=== PATIENT | female | born 1970 | race Caucasian/White ===

== ENCOUNTER → 2016-10-15 | Outpatient (CLI) | payer BC ==
--- NOTE | 2016-10-15 11:21 | MM ---
Reason for exam: clinical finding. Last mammogram was performed 1 year and 1 month ago. History: Patient had first child at age 37. Family history of breast cancer in maternal grandmother at age 60. Took hormonal contraceptives for 15 years beginning at age 18. Indicated problem(s): lump or thickening in both breasts. Physical Findings: Nurse Summary: 1cm nodule in the right breast at 1 o'clock (nurse mm) MG Diagnostic Mammo w CAD NAVID Bilateral CC and MLO view(s) were taken. Prior study comparison: September 12, 2015, bilateral MG screening mammo w CAD. January 13, 2014, bilateral MG screening mammo w CAD. The breast tissue is extremely dense which could obscure a lesion on mammography. Finding: There are typically stable benign calcifications in both breasts. There is a chronic nodularity bilaterally. No significant changes in finding since September 12, 2015 and January 13, 2014. These results were verbally communicated with the patient and result sheet given to the patient on 10/15/16. ASSESSMENT: Benign, BI-RAD 2 RECOMMENDATION: Routine screening mammogram of both breasts in 1 year.
--- NOTE | 2016-10-15 11:30 | USB ---
Reason for exam: clinical finding. History: Patient had first child at age 37. Family history of breast cancer in maternal grandmother at age 60. Took hormonal contraceptives for 15 years beginning at age 18. Indicated problem(s): lump or thickening in both breasts. Physical Findings: Nurse did not find any significant physical abnormalities on exam. US Breast BILAT Left breast ultrasound includes all four quadrants, the retroareolar region and axilla. Finding demonstrate several oval cystic lesions measuring 1.7 x 1.2 x 1.6cm at 12 o'clock, 1.5 x 1.2 x 1.3cm at 1 o'clock, 1.3 x 0.9 x 1.1cm at 6 o'clock, and 1.5 x 0.9 x 1.3 cm at 10 o'clock. Right breast ultrasound includes all four quadrants, the retroareolar region and axilla. Finding demonstrate several oval cystic lesions measuring 0.8 x 0.7 x 0.9cm at 1 o'clock, 0.9 x 0.8 x 0.9cm at 3 o'clock, 0.8 x 0.9 x 0.8cm at 8 o'clock, and 1.0 x 1.0 x 1.0cm at 10 o'clock. Multiple cyst throughout. These results were verbally communicated with the patient and result sheet given to the patient on 10/15/16. ASSESSMENT: Benign, BI-RAD 2 RECOMMENDATION: Routine screening mammogram of both breasts in 1 year. Manage patient on a clinical basis.
== END | disposition home or self-care (01) ==
LOC: RADMAMWWP 08:20
PROVIDERS: ATTEND Obstetrics & Gynecology
DX: N63 Unspecified lump in breast (principal); N60.09 Solitary cyst of unspecified breast; Z80.3 Family history of malignant neoplasm of breast
CPT/HCPCS: 76641; G0204

== ENCOUNTER 2017-08-27 10:04 | Inpatient (IN) | payer BC ==
[2017-08-27] MEDS ORDERED: PANTOPRAZOLE 40 MG/10 ML VIAL IVP STA (10:27)
[2017-08-27] MEDS ORDERED: RX INFO: IV CONTRAST WAS GIVEN 1 EACH MISC MISCELLANE PRN (10:27)
[2017-08-27] MEDS ORDERED: SODIUM CHLORIDE 0.9% 1,000 ML IV STA ×2 (10:27)
[2017-08-27] MEDS ORDERED: MORPHINE SULFATE 4MG/4ML SYRG IV STA (10:27)
[2017-08-27] MEDS ORDERED: ONDANSETRON 4 MG/2 ML VIAL IVP STA (10:27)
--- NOTE | 2017-08-27 10:46 | ED ---
Abdominal Pain HPI - General Chief Complaint: Abdominal Pain Stated Complaint: Abd Pain Time Seen by Provider: 08/27/17 10:18 Source: patient Mode of arrival: ambulatory Limitations: no limitations - History of Present Illness Initial Comments: 47 years old female presents with abdominal pain, pain started in epigastric area this morning around 5 AM, the pain has spread down to the left side of the abdomen were spinning amylase in the left lower quadrant or left paraumbilical area she is nauseous no vomiting though she does have a history of GERD she takes Nexium she denies any use of nonsteroidal anti-inflammatory she denies any use of peptic ulcer disease. She does have a history of endometriosis she been very or today that endometriosis been in remission for the last several yea for last several years and she has no history of abdominal surgeries she still has her appendix she still has her gallbladder and no history of diverticulitis, review of system is unremarkable unremarkable otherwise - Related Data Home Medications Medication Instructions Recorded Confirmed Pantoprazole Sodium [Protonix] 40 mg PO DAILY 08/27/17 08/27/17 Sertraline [Zoloft] 50 mg PO DAILY 08/27/17 08/27/17 levETIRAcetam [Keppra] 750 mg PO BID 08/27/17 08/27/17 Allergies Allergy/AdvReac Type Severity Reaction Status Date / Time latex Allergy Rash/Hives Verified 08/27/17 10:22 Sulfa (Sulfonamide Allergy Rash/Hives Verified 08/27/17 10:22 Antibiotics) Review of Systems ROS Statement: Those systems with pertinent positive or pertinent negative responses have been documented in the HPI. ROS Other: All systems not noted in ROS Statement are negative. Past Medical History Past Medical History: GERD/Reflux, Seizure Disorder Additional Past Medical History / Comment(s): anxiety celiac History of Any Multi-Drug Resistant Organisms: None Reported Past Surgical History: Adenoidectomy, Tonsillectomy Additional Past Surgical History / Comment(s): lap for endometriosis Past Psychological History: Anxiety Smoking Status: Former smoker Past Alcohol Use History: Occasional Past Drug Use History: None Reported General Exam - General Exam Comments Initial Comments: General: The patient is awake, in mild distress Skin: Skin is warm and dry and no rashes or lesions are noted. Eye: Pupils are equal, round and reactive to light, extra-ocular movements are intact; there is normal conjunctiva bilaterally. Ears, nose, mouth and throat: There are moist mucous membranes and no oral lesions. Neck: The neck is supple, there is no tenderness or JVD. Cardiovascular: There is a regular rate and rhythm. No murmur, rub or gallop is appreciated. Respiratory: To auscultation bilateral, no wheezing no rhonchi no distress respiratory arriola noticed Gastrointestinal: Mildly tender in epigastric area and also tender over the left lower quadrant area bowel sounds are positive no guarding no rebounds Back: There is no tenderness to palpation in the midline. There is no obvious deformity. Musculoskeletal: Normal ROM, no tenderness, There is no pedal edema. There is no calf tenderness or swelling. No cords were appreciated. Neurological: CN II-XII intact, Cranial nerves III through XII are intact. There are no obvious motor or sensory deficits. Coordination appears grossly intact. Speech is normal. Psychiatric: Cooperative, appropriate mood & affect, normal judgment. Limitations: no limitations Course Vital Signs 08/27/17 10:12 Temperature 97.7 F Pulse Rate 111 H Respiratory 18 Rate Blood Pressure 169/79 O2 Sat by Pulse 98 Oximetry Patient is reassessed by the time of arrest assessments noticed that the white count slightly elevated compress metabolic panel is negative urine is unremarkable CT of the abdomen showed mesenteric adenitis and NOTICED LEFT RENAL ANGIOMYOLIPOMA WHICH IS 4.7 CM CONSIDERING IS 4.7 CM AND PATIENT'S PAIN I RECOMMENDED THAT SHE STAY OBSERVATION TODAY HE SEES A UROLOGIST AND GET SOME IV PAIN MEDICATION ALONG WITH SOME ANTIBIOTICS Medical Decision Making - Lab Data Result diagrams: 08/27/17 11:00 08/27/17 11:00 Lab Results 08/27/17 08/27/17 08/27/17 Range/Units 11:00 11:00 11:00 WBC 13.0 H (3.8-10.6) k/uL RBC 4.98 (3.80-5.40) m/uL Hgb 14.2 (11.4-16.0) gm/dL Hct 43.4 (34.0-46.0) % MCV 87.0 (80.0-100.0) fL MCH 28.6 (25.0-35.0) pg MCHC 32.8 (31.0-37.0) g/dL RDW 13.0 (11.5-15.5) % Plt Count 265 (150-450) k/uL Neutrophils % 84 % Lymphocytes % 11 % Monocytes % 3 % Eosinophils % 2 % Basophils % 0 % Neutrophils # 10.9 H (1.3-7.7) k/uL Lymphocytes # 1.4 (1.0-4.8) k/uL Monocytes # 0.4 (0-1.0) k/uL Eosinophils # 0.2 (0-0.7) k/uL Basophils # 0.0 (0-0.2) k/uL Sodium 141 (137-145) mmol/L Potassium 4.2 (3.5-5.1) mmol/L Chloride 101 (98-107) mmol/L Carbon Dioxide 26 (22-30) mmol/L Anion Gap 14 mmol/L BUN 11 (7-17) mg/dL Creatinine 0.66 (0.52-1.04) mg/dL Est GFR (CKD-EPI)AfAm >90 (>60 ml/min/1.73 sqM) Est GFR (CKD-EPI)NonAf >90 (>60 ml/min/1.73 sqM) Glucose 105 H (74-99) mg/dL Calcium 9.3 (8.4-10.2) mg/dL Total Bilirubin 0.6 (0.2-1.3) mg/dL AST 29 (14-36) U/L ALT 46 (9-52) U/L Alkaline Phosphatase 91 (38-126) U/L C-Reactive Protein 18.7 H (<10.0) mg/L Total Protein 7.2 (6.3-8.2) g/dL Albumin 4.5 (3.5-5.0) g/dL Amylase 47 (30-110) U/L Lipase 49 (23-300) U/L Urine Color Urine Appearance (Clear) Urine pH (5.0-8.0) Ur Specific [place] (1.001-1.035) Urine Protein (Negative) Urine Glucose (UA) (Negative) Urine Ketones (Negative) Urine Blood (Negative) Urine Nitrite (Negative) Urine Bilirubin (Negative) Urine Urobilinogen (<2.0) mg/dL Ur Leukocyte Esterase (Negative) Urine HCG, Qual Not Detected (Not Detectd) 08/27/17 Range/Units 11:00 WBC (3.8-10.6) k/uL RBC (3.80-5.40) m/uL Hgb (11.4-16.0) gm/dL Hct (34.0-46.0) % MCV (80.0-100.0) fL MCH (25.0-35.0) pg MCHC (31.0-37.0) g/dL RDW (11.5-15.5) % Plt Count (150-450) k/uL Neutrophils % % Lymphocytes % % Monocytes % % Eosinophils % % Basophils % % Neutrophils # (1.3-7.7) k/uL Lymphocytes # (1.0-4.8) k/uL Monocytes # (0-1.0) k/uL Eosinophils # (0-0.7) k/uL Basophils # (0-0.2) k/uL Sodium (137-145) mmol/L Potassium (3.5-5.1) mmol/L Chloride (98-107) mmol/L Carbon Dioxide (22-30) mmol/L Anion Gap mmol/L BUN (7-17) mg/dL Creatinine (0.52-1.04) mg/dL Est GFR (CKD-EPI)AfAm (>60 ml/min/1.73 sqM) Est GFR (CKD-EPI)NonAf (>60 ml/min/1.73 sqM) Glucose (74-99) mg/dL Calcium (8.4-10.2) mg/dL Total Bilirubin (0.2-1.3) mg/dL AST (14-36) U/L ALT (9-52) U/L Alkaline Phosphatase (38-126) U/L C-Reactive Protein (<10.0) mg/L Total Protein (6.3-8.2) g/dL Albumin (3.5-5.0) g/dL Amylase (30-110) U/L Lipase (23-300) U/L Urine Color Light Yellow Urine Appearance Clear (Clear) Urine pH 7.0 (5.0-8.0) Ur Specific [place] 1.024 (1.001-1.035) Urine Protein 1+ H (Negative) Urine Glucose (UA) Negative (Negative) Urine Ketones Negative (Negative) Urine Blood Negative (Negative) Urine Nitrite Negative (Negative) Urine Bilirubin Negative (Negative) Urine Urobilinogen <2.0 (<2.0) mg/dL Ur Leukocyte Esterase Negative (Negative) Urine HCG, Qual (Not Detectd) Disposition Clinical Impression: Mesenteric adenitis, Renal angiomyolipoma Disposition: ADMITTED IP TO THIS [facility] Condition: Good Referrals: Axel Saldivar DO [Primary Care Provider] - 1-2 days
[2017-08-27 11:21] LABS: Appearance,Urine Clear (Clear); Bilirubin,Urine Negative (Negative); Blood,Urine Negative (Negative); Color,Urine Light Yellow; Glucose,Urine (UA) Negative (Negative); Ketones,Urine Negative (Negative); Leukocyte Esterase,Urine Negative (Negative); Nitrite,Urine Negative (Negative); Urobilinogen,Urine <2.0 mg/dL (<2.0)
[2017-08-27 11:23] LABS: Basophils % (A) 0 %; Eosinophils # (A) 0.2 k/uL (0-0.7); Eosinophils % (A) 2 %; HCT 43.4 % (34.0-46.0); HGB 14.2 gm/dL (11.4-16.0); Lymphocytes # (A) 1.4 k/uL (1.0-4.8); Lymphocytes % (A) 11 %; MCH 28.6 pg (25.0-35.0); MCHC 32.8 g/dL (31.0-37.0); Mean Platelet Volume 6.8; Monocytes # (A) 0.4 k/uL (0-1.0); Monocytes % (A) 3 %; Neutrophils # (A) 10.9 k/uL (1.3-7.7); Neutrophils % (A) 84 %; Platelet Count 265 k/uL (150-450); RBC 4.98 m/uL (3.80-5.40)
[2017-08-27 11:30] LABS: Protein,Urine 1+ (Negative); Specific Gravity,Urine 1.024 (1.001-1.035)
[2017-08-27 11:35] LABS: ALT 46 U/L (9-52); AST 29 U/L (14-36); Albumin 4.5 g/dL (3.5-5.0); Alkaline Phosphatase 91 U/L (38-126); Amylase 47 U/L (30-110); Anion Gap 14 mmol/L; Blood Urea Nitrogen 11 mg/dL (7-17); Calcium 9.3 mg/dL (8.4-10.2); Carbon Dioxide 26 mmol/L (22-30); Chloride 101 mmol/L (98-107); Glucose 105 mg/dL (74-99); Lipase 49 U/L (23-300); Potassium 4.2 mmol/L (3.5-5.1); Sodium 141 mmol/L (137-145); Total Bilirubin 0.6 mg/dL (0.2-1.3); Total Protein 7.2 g/dL (6.3-8.2)
[2017-08-27 11:50] LABS: C Reactive Protein 18.7 mg/L (<10.0)
--- NOTE | 2017-08-27 12:17 | CT ---
EXAMINATION TYPE: CT abdomen pelvis w con DATE OF EXAM: 08/27/2017 COMPARISON: NONE HISTORY: 47-year-old female with generalized abdominal pain TECHNIQUE: Contiguous axial scanning of the abdomen and pelvis following administration of 100 ml Omn ipaque 300 IV contrast. Delayed images through the kidneys and coronal/sagittal reconstructions perf ormed. CT DLP: 1394 mGycm Automated exposure control for dose reduction was used. FINDINGS: Heart is normal size without pericardial effusion. Lung bases clear without pleural effusion. Small hiatal hernia. Liver borderline enlarged measuring 17.3 cm craniocaudal. There is low attenuation of the hepatic par enchyma as compared to the spleen on portal venous phase. No focal liver lesion or biliary ductal dil atation. Portal venous system is patent. Gallbladder, adrenal glands, right kidney, spleen, and pancreas appear within normal limits. Numerous nonenlarged and couple borderline sized left mid abdominal mesenteric lymph nodes are presen t measuring up to 8 mm, coronal image 31. No dilated small bowel, free fluid, or free air. Tiny fatty umbilical hernia. The appendix is not clearly identified. No dilated tubular fluid-filled structure identified in the r ight lower quadrant to suggest acute appendicitis. Mild stool in the right hemicolon. Couple divertic jojo in the sigmoid colon. No pericolonic inflammatory change. There is a fatty tumor partially exophytic from the lateral mid pole left kidney most suggestive of a n AML measuring 4.6 cm. Bladder under distended. Uterus suggests underlying arcuate configuration and a 1.6 cm dominant folli eliana or functional cyst in the left ovary. Small hypodense area in the right uterine cornua is nonspec ific, coronal image 39 and axial image 68. Right ovary is visualized. No abnormal fluid collection in the pelvis or pelvic lymphadenopathy seen. Bones: No osseous destructive process. IMPRESSION: 1. 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 NOTE THAT SIZE GREATER THAN 4 CM INCURS AN INCREASED RISK FOR SP ONTANEOUS HEMORRHAGE IN THESE LESIONS. CONSIDER OUTPATIENT UROLOGIC REFERRAL FOR FUTURE MANAGEMENT/OB SERVATION. 2. BORDERLINE HEPATOMEGALY (17.3 CM) WITH HEPATIC STEATOSIS. 3. NUMEROUS SCATTERED NONENLARGED AND BORDERLINE ENLARGED MESENTERIC LYMPH NODES COULD REFLECT A MESE NTERIC ADENITIS. 4. SMALL HYPODENSE AREA IN THE REGION OF THE RIGHT UTERINE CORNUA IS NONSPECIFIC AND COULD REPRESENT SOME ENDOMETRIAL BREAKDOWN RELATING IMPENDING MENSTRUATION. IF PELVIC SYMPTOMS, PELVIC ULTRASOUND CAN BE CONSIDERED. 5. SMALL HIATAL HERNIA.
[2017-08-27] MEDS ORDERED: ACETAMINOPHEN TAB 325 MG TAB PO PRN (12:48)
[2017-08-27] MEDS ORDERED: KETOROLAC 30 MG/ML 1 ML VIAL IVP PRN (12:48)
[2017-08-27] MEDS ORDERED: MORPHINE SULF 5MG/10ML VL IV PRN ×2 (12:48→13:58)
[2017-08-27] MEDS ORDERED: NALOXONE 0.4 MG/ML 1 ML VIAL IV PRN (12:48)
[2017-08-27] MEDS ORDERED: ONDANSETRON 4 MG/2 ML VIAL IVP PRN (12:48)
[2017-08-27] MEDS ORDERED: cefTRIAXone IN SWFI 1,000 MG/10 ML SYRINGE IVP STA (12:55)
--- NOTE | 2017-08-27 14:13 | P.HPIM ---
History of Present Illness 47 years old female presents with abdominal pain, started today in the left flank, sudden in onset, sharp in nature 10/10 in severity, radiating to the left groin area. Patient. Patient had a CAT scan of the abdomen which showed angiomyolipoma with possible hemorrhage in the left kidney. Because of severe pain and uncontrolled pain. Patient is admitted. Patient is still having 7/10 pain improved with Toradol and morphine. Patient is on IV fluids and Toradol. Patient the had history of endometriosis in the past. Patient denied any dysuria, increased urinary frequency. Denied any cough, denied any fever, chills Review of Systems REVIEW OF SYSTEMS: CONSTITUTIONAL: No fever, no malaise, no fatigue. HEENT: No recent visual problems or hearing problems. Denied any sore throat. CARDIOVASCULAR: No chest pain, orthopnea, PND, no palpitations, no syncope. PULMONARY: No shortness of breath, no cough, no hemoptysis. GASTROINTESTINAL: Mentioned in HPI NEUROLOGICAL: No headaches, no weakness, no numbness. HEMATOLOGICAL: Denies any bleeding or petechiae. GENITOURINARY: Denies any burning micturition, frequency, or urgency. MUSCULOSKELETAL/RHEUMATOLOGICAL: Denies any joint pain, swelling, or any muscle pain. ENDOCRINE: Denies any polyuria or polydipsia. The rest of the 14-point review of systems is negative. Past Medical History Past Medical History: GERD/Reflux, Seizure Disorder Additional Past Medical History / Comment(s): anxiety celiac History of Any Multi-Drug Resistant Organisms: None Reported Past Surgical History: Adenoidectomy, Tonsillectomy Additional Past Surgical History / Comment(s): lap for endometriosis Past Psychological History: Anxiety Smoking Status: Former smoker Past Alcohol Use History: Occasional Past Drug Use History: None Reported Medications and Allergies Home Medications Medication Instructions Recorded Confirmed Type Pantoprazole Sodium [Protonix] 40 mg PO DAILY 08/27/17 08/27/17 History Sertraline [Zoloft] 50 mg PO DAILY 08/27/17 08/27/17 History levETIRAcetam [Keppra] 750 mg PO BID 08/27/17 08/27/17 History Allergies Allergy/AdvReac Type Severity Reaction Status Date / Time latex Allergy Rash/Hives Verified 08/27/17 10:22 Sulfa (Sulfonamide Allergy Rash/Hives Verified 08/27/17 10:22 Antibiotics) Physical Exam Vitals: Vital Signs Temp Pulse Resp BP Pulse Ox 08/27/17 13:00 96 16 127/63 98 08/27/17 10:12 97.7 F 111 H 18 169/79 98 Intake and Output 08/26/17 08/27/17 08/27/17 22:59 06:59 14:59 Other: Weight 85.275 kg PHYSICAL EXAMINATION: GENERAL: The patient is alert and oriented x3, not in any acute distress. Well developed, well nourished. HEENT: Pupils are round and equally reacting to light. EOMI. No scleral icterus. No conjunctival pallor. Normocephalic, atraumatic. No pharyngeal erythema. No thyromegaly. CARDIOVASCULAR: S1 and S2 present. No murmurs, rubs, or gallops. PULMONARY: Chest is clear to auscultation, no wheezing or crackles. ABDOMEN: Softtenderness in left flank and abdomen nondistended, normoactive bowel sounds. No palpable organomegaly. MUSCULOSKELETAL: No joint swelling or deformity. EXTREMITIES: No cyanosis, clubbing, or pedal edema. NEUROLOGICAL: Gross neurological examination did not reveal any focal deficits. SKIN: No rashes. Results CBC & Chem 7: 08/27/17 11:00 08/27/17 11:00 Labs: Abnormal Lab Results - Last 24 Hours (Table) 08/27/17 08/27/17 08/27/17 Range/Units 11:00 11:00 11:00 WBC 13.0 H (3.8-10.6) k/uL Neutrophils # 10.9 H (1.3-7.7) k/uL Glucose 105 H (74-99) mg/dL C-Reactive Protein 18.7 H (<10.0) mg/L Urine Protein 1+ H (Negative) Assessment and Plan Plan: -Left flank pain, left abdominal pain: Secondary to possible hemorrhage into angiomyoma lipoma of the left kidney. Urology was consulted and patient will be on when necessary medications for nausea, unclear light and morphine for pain. And Plavix will risk and urine. -leukocytosis reactive in nature. No need for antibiotic at this time Gastroesophageal reflux disease. -Seizure disorder. For above-mentioned chronic medical problems patient resumed on home medications.
[2017-08-27 14:27] VITALS: BMI 34.4
[2017-08-27 16:02] VITALS: RESP 18
[2017-08-27] MEDS ORDERED: MORPHINE SULFATE 4MG/4ML SYRG IV PRN (16:30)
--- NOTE | 2017-08-27 16:53 | P.GSCN ---
History of Present Illness Consult date: 08/27/17 Reason for Consult: Left renal mass History of present illness: The patient is a 47-year-old female who developed the abrupt onset of pain in the epigastric abdomen this morning. The pain was described as a 10 out of 10 initially. The location of the pain has changed and is now predominantly in the left upper quadrant and left lower quadrant. It was associated with some nausea but no vomiting. The patient says she has a history of celiac disease but has had no recent change in her bowel pattern. She says she feels like if she could pass gas her pain would be relieved. She has had no gross hematuria but says that she was noted to have a trace of blood in her urine when she was seen in an outpatient clinic earlier this morning. She was evaluated in the emergency room earlier today and a computed tomography scan of the abdomen and pelvis with IV contrast showed a 4.5 cm fat-containing mass arising from the superior-the lateral portion of the left kidney consistent with an angiomyolipoma. There did not appear to be any acute bleeding associated with this. I was asked to see the patient for further evaluation. The patient has no previous imaging of her kidneys for comparison. There is no family history of renal disease or angiomyolipoma. The patient has a history of seizures but has not had one in several years since she has been maintained on Keppra. She has no previous history of gross hematuria or urolithiasis. She does have a history of endometriosis. Review of Systems - Constitutional Denies chronic pain, Denies fever - Cardiovascular Denies shortness of breath - Respiratory Reports pain on inspiration - Gastrointestinal Reports as per HPI - Genitourinary Genitourinary: Reports as per HPI Past Medical History Past Medical History: GERD/Reflux, Seizure Disorder Additional Past Medical History / Comment(s): anxiety celiac endometriosis History of Any Multi-Drug Resistant Organisms: None Reported Past Surgical History: Adenoidectomy, Tonsillectomy Additional Past Surgical History / Comment(s): lap for endometriosis Past Anesthesia/Blood Transfusion Reactions: No Reported Reaction Past Psychological History: Anxiety Smoking Status: Former smoker Past Alcohol Use History: Occasional Past Drug Use History: None Reported - Past Family History Mother Family Medical History: Diabetes Mellitus, Hypertension Medications and Allergies Home Medications Medication Instructions Recorded Confirmed Type Pantoprazole Sodium [Protonix] 40 mg PO DAILY 08/27/17 08/27/17 History Sertraline [Zoloft] 50 mg PO DAILY 08/27/17 08/27/17 History levETIRAcetam [Keppra] 750 mg PO BID 08/27/17 08/27/17 History Allergies Allergy/AdvReac Type Severity Reaction Status Date / Time latex Allergy Rash/Hives Verified 08/27/17 10:22 Sulfa (Sulfonamide Allergy Rash/Hives Verified 08/27/17 10:22 Antibiotics) Surgical - Exam Vital Signs Temp Pulse Resp BP Pulse Ox 97.7 F 111 H 18 169/79 98 08/27/17 10:12 08/27/17 10:12 08/27/17 10:12 08/27/17 10:12 08/27/17 10:12 - General well developed, moderate pain, obese - Neck no masses, no lymphadectomy - Respiratory normal respiratory effort - Abdomen Abdomen: soft, tender (Left upper quadrant and left lower quadrant. No left flank pain to palpation), no organomegaly, no masses - Integumentary other (No evidence of adenoma sebaceum of face) Results - Labs 08/27/17 11:00 08/27/17 11:00 Abnormal Lab Results - Last 24 Hours (Table) 08/27/17 08/27/17 08/27/17 Range/Units 11:00 11:00 11:00 WBC 13.0 H (3.8-10.6) k/uL Neutrophils # 10.9 H (1.3-7.7) k/uL Glucose 105 H (74-99) mg/dL C-Reactive Protein 18.7 H (<10.0) mg/L Urine Protein 1+ H (Negative) Diabetes panel 08/27/17 Range/Units 11:00 Sodium 141 (137-145) mmol/L Potassium 4.2 (3.5-5.1) mmol/L Chloride 101 (98-107) mmol/L Carbon Dioxide 26 (22-30) mmol/L BUN 11 (7-17) mg/dL Creatinine 0.66 (0.52-1.04) mg/dL Glucose 105 H (74-99) mg/dL Calcium 9.3 (8.4-10.2) mg/dL AST 29 (14-36) U/L ALT 46 (9-52) U/L Alkaline Phosphatase 91 (38-126) U/L Total Protein 7.2 (6.3-8.2) g/dL Albumin 4.5 (3.5-5.0) g/dL Calcium panel 08/27/17 Range/Units 11:00 Calcium 9.3 (8.4-10.2) mg/dL Albumin 4.5 (3.5-5.0) g/dL Pituitary panel 08/27/17 Range/Units 11:00 Sodium 141 (137-145) mmol/L Potassium 4.2 (3.5-5.1) mmol/L Chloride 101 (98-107) mmol/L Carbon Dioxide 26 (22-30) mmol/L BUN 11 (7-17) mg/dL Creatinine 0.66 (0.52-1.04) mg/dL Glucose 105 H (74-99) mg/dL Calcium 9.3 (8.4-10.2) mg/dL Adrenal panel 08/27/17 Range/Units 11:00 Sodium 141 (137-145) mmol/L Potassium 4.2 (3.5-5.1) mmol/L Chloride 101 (98-107) mmol/L Carbon Dioxide 26 (22-30) mmol/L BUN 11 (7-17) mg/dL Creatinine 0.66 (0.52-1.04) mg/dL Glucose 105 H (74-99) mg/dL Calcium 9.3 (8.4-10.2) mg/dL Total Bilirubin 0.6 (0.2-1.3) mg/dL AST 29 (14-36) U/L ALT 46 (9-52) U/L Alkaline Phosphatase 91 (38-126) U/L Total Protein 7.2 (6.3-8.2) g/dL Albumin 4.5 (3.5-5.0) g/dL - Imaging CT scan - abdomen: image reviewed (I personally reviewed the patient's computed tomography scan. She has a 4.5 cm mass arising from the anterolateral portion of the left kidney which appears to be predominantly fat and would be consistent with angiomyolipoma. There is no blush on the arterial phase of the scan suggestive of an acute bleed and there was no fluid or edema surrounding the mass.) Assessment and Plan (1) Renal angiomyolipoma Narrative/Plan: The patient's computed tomography scan findings are consistent with a benign angiomyolipoma. The computed tomography scan does not suggest an acute bleed related to this and so the cause of the patient's abdominal pain remains unclear. The patient has a history of seizures which brings up the possibility that she may have tuberous sclerosis complex. I explained to her that if her pain continues a CT arteriogram of the kidneys may be considered in the morning. If she has acute bleeding then arteriographic control of the bleeding may be a treatment option. Management of angiomyolipoma via mTOR inhibitors has been used recently but would be of no value acutely. Current Visit: Yes Status: Acute Code(s): D17.71 - BENIGN LIPOMATOUS NEOPLASM OF KIDNEY SNOMED Code(s): 802798092
[2017-08-27] MEDS: DOCUSATE 100 MG CAP PO SCH (20:21)
[2017-08-28 06:20] VITALS: BP 97/62; PULSE 71; TEMP 98
[2017-08-28] MEDS ORDERED: PANTOPRAZOLE 40 MG TABLET PO SCH (07:30)
[2017-08-28] MEDS ORDERED: MORPHINE ORAL SOLN 10 MG/5 ML CUP PO PRN (07:52)
--- NOTE | 2017-08-28 07:53 | P.PN ---
Progress Note - Text Progress Note Date: 08/28/17 The patient is afebrile and hemodynamically stable. She has been more comfortable through the night and says the last time she had any analgesics was at 8 PM when she received Toradol. She still has some left-sided abdominal pain but says that at the present time it's tolerable without analgesics. She has had no further nausea and has had node vomiting. The cause of the patient's abdominal pain remains unclear but it is possible that she may have had some subacute bleeding within the left renal mass which was not identifiable on the computed tomography scan. No other clear-cut cause for her pain has been found. If the patient remains comfortable she could be discharged later today. I would like to see her back in follow-up sometime next week and at that time a repeat computed tomography scan may be considered. Due to the concern for bleeding it would be best if the patient not be treated with Toradol if she requires analgesics for pain control
[2017-08-28] MEDS: DOCUSATE 100 MG CAP PO SCH (08:24)
[2017-08-28] MEDS ORDERED: SERTRALINE 50 MG TAB PO SCH (09:00)
--- NOTE | 2017-08-28 15:17 | P.DS ---
Providers Date of admission: 08/28/17 08:19 Attending physician: Hien Nicole Consults: 08/27/17 12:48 Consult Physician Stat Consulting Provider: Jd Zapata Consult Reason/Comments: Large renal angiomyolipoma Do you want consulting provider notified?: Yes Primary care physician: Axel Saldivar [facility] Course: 45-year-old female admitted secondary to back abdominal pain which was later again secondary to angiomyolipoma of the left kidney. Patient was evaluated by urologyshe'll follow with urology as an outpatient . patient patient has mesenteric adenitis which need to be followed as well with a repeat CAT scan most probably PHYSICAL EXAMINATION: GENERAL: The patient is alert and oriented x3, not in any acute distress. Well developed, well nourished. HEENT: Pupils are round and equally reacting to light. EOMI. No scleral icterus. No conjunctival pallor. Normocephalic, atraumatic. No pharyngeal erythema. No thyromegaly. CARDIOVASCULAR: S1 and S2 present. No murmurs, rubs, or gallops. PULMONARY: Chest is clear to auscultation, no wheezing or crackles. ABDOMEN: Soft, nontender, nondistended, normoactive bowel sounds. No palpable organomegaly. MUSCULOSKELETAL: No joint swelling or deformity. EXTREMITIES: No cyanosis, clubbing, or pedal edema. NEUROLOGICAL: Gross neurological examination did not reveal any focal deficits. SKIN: No rashes. Plan: -Left flank pain, left abdominal pain: Secondary to possible hemorrhage into angiomyoma lipoma of the left kidney. -leukocytosis reactive in nature. No need for antibiotic at this time Gastroesophageal reflux disease. -Seizure disorder. -Celiac disease Patient Condition at Discharge: Good Plan - Discharge Summary Discharge Rx Participant: No New Discharge Prescriptions: New HYDROcodone/APAP 7.5-325MG [[place] 7.5-325] 1 tab PO Q4H PRN #30 tab PRN Reason: Pain No Action levETIRAcetam [Keppra] 750 mg PO BID Sertraline [Zoloft] 50 mg PO DAILY Pantoprazole Sodium [Protonix] 40 mg PO DAILY Discharge Medication List Pantoprazole Sodium [Protonix] 40 mg PO DAILY 08/27/17 [History] Sertraline [Zoloft] 50 mg PO DAILY 08/27/17 [History] levETIRAcetam [Keppra] 750 mg PO BID 08/27/17 [History] HYDROcodone/APAP 7.5-325MG [[place] 7.5-325] 1 tab PO Q4H PRN #30 tab 08/28/17 [Rx ] Follow up Appointment(s)/Referral(s): Axel Saldivar DO [Primary Care Provider] - 3 Days Landon Casillas MD [STAFF PHYSICIAN] - 1 Week Discharge Disposition: HOME SELF-CARE
== END 2017-08-28 15:21 | disposition home or self-care (01) | DRG 395 ==
LOC: EC 10:04 → 4MS4W 12:48 → OBSVTOIN 08-28 08:19
PROVIDERS: ADMIT Hospitalist; ATTEND Hospitalist
DX: D17.71 Benign lipomatous neoplasm of kidney (principal); D72.829 Elevated white blood cell count, unspecified; K21.9 Gastro-esophageal reflux disease without esophagitis; K90.0 Celiac disease; G40.909 Epilepsy, unspecified, not intractable, without status epilepticus; I88.0 Nonspecific mesenteric lymphadenitis; F41.9 Anxiety disorder, unspecified; Z87.891 Personal history of nicotine dependence; Z79.899 Other long term (current) drug therapy; Z88.2 Allergy status to sulfonamides; Z91.040 Latex allergy status; Z98.890 Other specified postprocedural states; Z82.49 Family history of ischemic heart disease and other diseases of the circulatory system; Z83.3 Family history of diabetes mellitus
CPT/HCPCS: 36415; 74177; 80053; 81001; 81003; 81025; 82150; 83690; 85025; 86140; 96361; 96374; 96375; 99285

== ENCOUNTER → 2017-11-02 | Outpatient (CLI) | payer BC ==
--- NOTE | 2017-11-04 13:13 | BD ---
EXAMINATION TYPE: Axial Bone Density DATE OF EXAM: 11/02/2017 COMPARISON: NONE CLINICAL HISTORY: celiac disease. Osteoporosis screening. Height: 5'3 Weight: 190 FRAX RISK QUESTIONS: Secondary Osteoporosis: RISK FACTORS HISTORY OF: History of Wrist Fracture: rt When: age 18 If Premenopausal, do you have irregular periods: MEDICATIONS: Additional Medications: seizure zoloft, gerd Additional History: EXAM MEASUREMENTS: Bone mineral densitometry was performed using the [employer]. Bone mineral density as measured about the Lumbar spine is: ----- L1-L4(G/cm2): 1.426 T Score Values are as follows: ----- L2: 1.6 ----- L3: 2.1 ----- L4: 2.2 ----- L1-L4: 2.1 Bone mineral density about the R hip (g/cm2): 0.999 Bone mineral density about the L hip (g/cm2): 1.101 T Score values are as follows: -----R Neck: -0.3 -----L Neck: 0.5 -----R Total: 0.9 -----L Total: 1.5 IMPRESSION: Normal (Values between +1 and -1 indicate normal bone mass). Consider repeating this study in 5 year s or sooner if there is some new clinical indication. NOTE: T-SCORE=SD OF THE YOUNG ADULT MEAN.
== END | disposition home or self-care (01) ==
LOC: RADBDWWP 16:14
PROVIDERS: ATTEND Internal Medicine Gastroenterology
DX: K90.0 Celiac disease (principal)
CPT/HCPCS: 77080

== ENCOUNTER → 2017-11-18 | Outpatient (CLI) | payer BC ==
--- NOTE | 2017-11-19 14:11 | MM ---
Reason for exam: screening (asymptomatic). Last mammogram was performed 1 year and 1 month ago. History: Patient had first child at age 37. Family history of breast cancer in maternal grandmother at age 60. Took hormonal contraceptives for 15 years beginning at age 18. Physical Findings: A clinical breast exam by your physician is recommended on an annual basis and results should be correlated with mammographic findings. MG Screening Mammo w CAD Bilateral CC and MLO view(s) were taken. Prior study comparison: October 15, 2016, bilateral MG diagnostic mammo w CAD NAVID. September 12, 2015, bilateral MG screening mammo w CAD. The breast tissue is heterogeneously dense. This may lower the sensitivity of mammography. Diffuse punctate calcifications on the right. Circumscribed nodularity in the left breast is fluctuating, likely fibrocystic change. Underlying nodularity right CC view middle depth lateral to the retroareolar plane not well seen previously. ASSESSMENT: Incomplete: need additional imaging evaluation, BI-RAD 0 RECOMMENDATION: Ultrasound of the right breast. (lateral half) [facility] will attempt to contact patient to return for ultrasound.
== END | disposition home or self-care (01) ==
LOC: RADMAMWWP 17:10
PROVIDERS: ATTEND Obstetrics & Gynecology
DX: Z12.31 Encounter for screening mammogram for malignant neoplasm of breast (principal); Z80.3 Family history of malignant neoplasm of breast
CPT/HCPCS: 77067

== ENCOUNTER → 2017-12-07 | Outpatient (CLI) | payer BC ==
--- NOTE | 2017-12-08 11:57 | USB ---
Reason for exam: additional evaluation requested from abnormal screening. History: Patient had first child at age 37. Family history of breast cancer in maternal grandmother at age 60. Took hormonal contraceptives for 15 years beginning at age 18. Physical Findings: Nurse Summary: soft, movable nodule (nurse dw). US Breast Workup Limited RT Right limited breast ultrasound including focal area of concern, retroareolar and axilla demonstrates a 0.7 x 0.5 x 0.6cm ovoid, circumscribed, mixed lesion at 8 o'clock, likely cystic but located deep, a 0.5 x 0.4 x 0.7cm cystic, palpable, benign lesion at 9 o'clock, a 1.1 x 0.7 x 0.9cm cystic lesion at 10 o'clock, a 0.6 x 0.5 x 0.7cm cystic lesion at 10 o'clock and a 1.1 x 0.8 x 1.1cm cystic lesion at 12 o'clock. 1 year follow up mammography recommended. These results were verbally communicated with the patient and result sheet given to the patient on 12/07/17. ASSESSMENT: Probably benign, BI-RAD 3 RECOMMENDATION: Follow-up diagnostic mammogram of both breasts in 1 year.
== END | disposition home or self-care (01) ==
LOC: RADUSWWP 10:10
PROVIDERS: ATTEND Obstetrics & Gynecology
DX: R92.8 Other abnormal and inconclusive findings on diagnostic imaging of breast (principal)

== ENCOUNTER → 2018-04-29 | Outpatient (CLI) | payer BC ==
--- NOTE | 2018-04-30 07:39 | US ---
EXAMINATION TYPE: US kidneys/renal and bladder DATE OF EXAM: 04/29/2018 COMPARISON: CT 08/27/2017 CLINICAL HISTORY: D41.02 Left renal mass. EXAM MEASUREMENTS: Right Kidney: 10.5 x 5.2 x 5.6 cm Left Kidney: 11.1 x 5.8 x 5.1 cm Right Kidney: No hydronephrosis or masses seen Left Kidney: 3.9 cm isoechoic area deforming anterior aspect of left kidney Bladder: distended Bilateral Jets seen: yes There is no evidence for hydronephrosis at this point in time. No nephrolithiasis is seen. No right renal masses are identified. The urinary bladder is anechoic. Bilateral ureteral jets are seen. IMPRESSION: Hyperechoic left renal lesion again most compatible with a benign angiomyolipoma. Differences in size measurement is likely related to obliquity as the mass is not well seen in the transverse plane sono graphically. No interval growth is seen. Note that angiomyolipomas greater than 4 cm are risk of inte rnal hemorrhage. Therefore surveillance could be performed.
== END | disposition home or self-care (01) ==
LOC: RADUSWWP 16:06
PROVIDERS: ATTEND Urology
DX: D41.02 Neoplasm of uncertain behavior of left kidney (principal)
CPT/HCPCS: 76770

== ENCOUNTER → 2018-12-28 | Outpatient (CLI) | payer BC ==
--- NOTE | 2018-12-29 08:47 | MM ---
Reason for exam: additional evaluation requested from prior study. Last mammogram was performed 1 year and 1 month ago. History: Patient had first child at age 37. Family history of breast cancer in maternal grandmother at age 60. Took hormonal contraceptives for 15 years beginning at age 18. Physical Findings: Nurse did not find any significant physical abnormalities on exam. MG 3D Diag Mammo W/Cad NAVID Bilateral CC and MLO view(s) were taken. Prior study comparison: November 18, 2017, bilateral MG screening mammo w CAD. October 15, 2016, bilateral MG diagnostic mammo w CAD NAVID. The breast tissue is heterogeneously dense. This may lower the sensitivity of mammography. There are benign appearing round oval circumscribed bilateral masses waxing and waning over multiple prior exams most compatible with cysts radiographically. Although a left upper inner quadrant middle depth mass increased over priors. Benign appearing bilateral calcifications. No suspicious abnormality on the right. These results were verbally communicated with the patient and result sheet given to the patient on 12/28/18. ASSESSMENT: Incomplete: need additional imaging evaluation, BI-RAD 0 RECOMMENDATION: Ultrasound of the left breast. (upper inner quadrant)
--- NOTE | 2018-12-29 08:49 | USB ---
Reason for exam: additional evaluation requested from abnormal screening. History: Patient had first child at age 37. Family history of breast cancer in maternal grandmother at age 60. Took hormonal contraceptives for 15 years beginning at age 18. US Breast Limited LT Left limited breast ultrasound including focal area of concern, retroareolar and axilla demonstrates a 1.8 x 2.0 x 1.6cm cystic lesion at 9 o'clock, a 1.0 x 1.0 x 0.9cm cystic lesion at 10 o'clock, a 0.7 x 0.6 x 0.5cm hypoechoic lesion, complicated cyst with increase through transmission at 11 o'clock and a 0.7 x 0.8 x 0.8cm cystic lesion at 12 o'clock. These results were verbally communicated with the patient and result sheet given to the patient on 12/28/18. ASSESSMENT: Benign, BI-RAD 2 RECOMMENDATION: Routine screening mammogram of both breasts in 1 year.
== END | disposition home or self-care (01) ==
LOC: RADMAMWWP 13:08
PROVIDERS: ATTEND Obstetrics & Gynecology
DX: R92.8 Other abnormal and inconclusive findings on diagnostic imaging of breast (principal)
CPT/HCPCS: 77062; 77066

== ENCOUNTER → 2019-07-22 | Outpatient (CLI) | payer BC | END | disposition home or self-care (01) | LOC: LABWHC1 16:24 | PROVIDERS: ATTEND Otolaryngology | DX: J30.89 Other allergic rhinitis (principal) | CPT/HCPCS: 36415 ==

== ENCOUNTER 2019-11-16 13:49 | Emergency (ER) | payer BC ==
[2019-11-16 14:18] VITALS: BP 136/68; PULSE 100; RESP 18; TEMP 98
[2019-11-16 15:00] LABS: Appearance,Urine Clear (Clear); Bilirubin,Urine 1+ (Negative); Blood,Urine Negative (Negative); Color,Urine Dark Brown; Glucose,Urine (UA) Negative (Negative); Ketones,Urine Negative (Negative); Leukocyte Esterase,Urine Negative (Negative); Nitrite,Urine Positive (Negative); Protein,Urine Negative (Negative); RBC,Urine <1 /hpf (0-5); Specific Gravity,Urine 1.011 (1.001-1.035); Squamous Epithelial Cell,Urine 1 /hpf (0-4); WBC,Urine 1 /hpf (0-5)
[2019-11-16] MEDS ORDERED: MORPHINE SULFATE 4 MG/ML SYRINGE IV STA (15:02)
[2019-11-16] MEDS ORDERED: SODIUM CHLORIDE 0.9% 1,000 ML IV STA (15:02)
[2019-11-16] MEDS ORDERED: ONDANSETRON 4 MG/2 ML VIAL IVP STA (15:02)
--- NOTE | 2019-11-16 15:29 | ED ---
General Adult HPI - General Source: patient, RN notes reviewed, old records reviewed Mode of arrival: ambulatory Limitations: no limitations <Greg Linder - Last Filed: 11/16/19 17:02> <Yashira Castañeda - Last Filed: 11/20/19 02:18> - General Chief complaint: Urogenital Stated complaint: Recheck UTI/back pain Time Seen by Provider: 11/16/19 14:43 - History of Present Illness Initial comments: 49-year-old female patient presents to ED for evaluation of bilateral flank pain, urinary tract infection. Patient reports that for the last 10 days she has been having flank pain. Reports it is on both sides. She states that when this happened she typically has a urinary tract infection. She reports that approximately 5 days ago she dropped off a urine sample at her primary care provider. She reports that it was positive for infection. She was started on Macrobid which she has taken 3 doses of. She reports that the pain her flanks has not improved whatsoever and is getting worse. She states that she has been having nausea without emesis. She will rest the ED for further evaluation. She denies a chance of being . Systemic: Pt denies fatigue, fever/chills, rash. Pt denies weakness, night sw eats, weight loss. Neuro: Pt denies headache, visual disturbances, syncope or pre-syncope. HEENT: Pt denies ocular discharge or irritation, otalgia, rhinorrhea, pharyngitis or notable lymphadenopathy. Cardiopulmonary: Pt denies chest pain, SOB, heart palpitations, dyspnea on exertion. Abdominal/GI: Pt denies abdominal pain, v/d. : Pt denies dysuria, burning w/ urination, frequency/urgency. Denies new onset urinary or bowel incontinence. MSK: Pt denies myalgia, loss of strength or function in extremities. Neuro: Pt denies new onset weakness, paresthesias. (Greg Linder) - Related Data Home Medications Medication Instructions Recorded Confirmed Pantoprazole Sodium [Protonix] 40 mg PO DAILY 08/27/17 11/16/19 Sertraline [Zoloft] 50 mg PO DAILY 08/27/17 11/16/19 levETIRAcetam [Keppra] 750 mg PO BID 08/27/17 11/16/19 Cranberry Fruit Concentrate [Azo 250 mg PO DAILY 11/16/19 11/16/19 Cranberry] Fluticasone Nasal [place] [Flonase 2 spr EA NOSTRIL HS PRN 11/16/19 11/16/19 Nasal [place]] LORazepam [Ativan] 1 mg PO Q8H PRN 11/16/19 11/16/19 Nitrofurantoin Monohyd/M-Cryst 100 mg PO Q12HR 11/16/19 11/16/19 [Macrobid] Previous Rx's Medication Instructions Recorded Cephalexin [Keflex] 500 mg PO Q6HR 10 Days #40 cap 11/16/19 Allergies Allergy/AdvReac Type Severity Reaction Status Date / Time latex Allergy Rash/Hives Verified 11/16/19 14:18 Sulfa (Sulfonamide Allergy Rash/Hives Verified 11/16/19 14:18 Antibiotics) Review of Systems ROS Other: All systems not noted in ROS Statement are negative. <Greg Linder - Last Filed: 11/16/19 17:02> ROS Other: All systems not noted in ROS Statement are negative. <Yashira Castañeda - Last Filed: 11/20/19 02:18> ROS Statement: Those systems with pertinent positive or pertinent negative responses have been documented in the HPI. Past Medical History Past Medical History: GERD/Reflux, Seizure Disorder Additional Past Medical History / Comment(s): anxiety celiac endometriosis History of Any Multi-Drug Resistant Organisms: None Reported Past Surgical History: Adenoidectomy, Tonsillectomy Additional Past Surgical History / Comment(s): lap for endometriosis Past Anesthesia/Blood Transfusion Reactions: No Reported Reaction Past Psychological History: Anxiety Smoking Status: Former smoker Past Alcohol Use History: Occasional Past Drug Use History: None Reported - Past Family History Mother Family Medical History: Diabetes Mellitus, Hypertension <Greg Linder - Last Filed: 11/16/19 17:02> General Exam Limitations: no limitations <Greg Linder - Last Filed: 11/16/19 17:02> - General Exam Comments Initial Comments: Constitutional: NAD, AOX3, Pt has pleasant affect. HEENT: NC/AT, trachea midline, neck supple, no lymphadenopathy. Posterior pharynx non erythematous, without exudates. External ears appear normal, without discharge. Mucous membranes moist. Eyes PERRLA, EOM intact. There is no scleral icterus. No pallor noted. Cardiopulmonary: RRR, no murmurs, rubs or gallops, no JVD noted. Lungs CTAB in anterior and posterior nichols. No peripheral edema. Abdominal exam: Abdomen soft and non-distended. Abdomen non-tender to palpation in all 4 quadrants. Bowel sounds active in LLQ. No hepatosplenomegaly. No ecchymosis. Left CVA tenderness is positive. Right CVA tenderness is negative. Neuro: CN II-XII grossly intact. No nuchal rigidity. No raccon eyes, no way sign, no hemotympanum. No cervical spinal tenderness. MSK: No posterior calf tenderness bilaterally, homans sign negative bilaterally. Posterior tibialis and radial pulse +2 bilaterally. Sensation intact in upper and lower extremities. Full active ROM in upper and lower extremities, 5/5 stre gnth. (Greg Linder) Course Vital Signs 11/16/19 14:14 Temperature 98 F Pulse Rate 100 Respiratory 18 Rate Blood Pressure 136/68 O2 Sat by Pulse 96 Oximetry Medical Decision Making - Lab Data Result diagrams: 11/16/19 15:21 11/16/19 15:21 <Greg Linder - Last Filed: 11/16/19 17:02> - Lab Data Result diagrams: 11/16/19 15:21 11/16/19 15:21 <Yashira Castañeda - Last Filed: 11/20/19 02:18> - Medical Decision Making 49-year-old female patient presents to ED for evaluation of bilateral flank pain, urinary tract infection. Patient reports that for the last 10 days she has been having flank pain. Reports it is on both sides. She states that when this happened she typically has a urinary tract infection. She reports that approximately 5 days ago she dropped off a urine sample at her primary care provider. She reports that it was positive for infection. She was started on Macrobid which she has taken 3 doses of. She reports that the pain her flanks has not improved whatsoever and is getting worse. She states that she has been having nausea without emesis. She will rest the ED for further evaluation. She denies a chance of being . Patient will signs are stable, afebrile. Physical exam didn't display mild left CVA tenderness. Lymph investigations obtained and are overall noncompressive. UA is positive for nitrates. CT abdomen and pelvis was performed this displayed a few prominent jejunal loops in the left mid abdomen with mild wall thickening. Laboratory for possible nonseptic monarthritis. Superficial bladder wall thickening. Redemonstrated 4.5 cm a mild left kidney. Hepatic steatosis. Patient initiated on 2 g Rocephin in the ED. Patient will be discharged with Keflex 3 times a day and close outpatient follow-up with primary care provider. Case discussed with Dr. Castañeda. (Greg Linder) I was available for consultation in the emergency department. The history and physical exam were done by the midlevel provider. I was consulted for this patients care. I reviewed the case with the midlevel provider and based on th eir presentation of the patient, I agree with the assessment, medical decision making and plan of care as documented. Chart was dictated using [employer] dictation software. Attempts were made to correct any dictation errors however some typographical errors may persist. Patient was seen during a national state of emergency due to the Covid-19 pandemic. (Yashira Castañeda) - Lab Data Lab Results 11/16/19 11/16/19 11/16/19 Range/Units 14:45 14:45 15:21 WBC 7.7 (3.8-10.6) k/uL RBC 4.38 (3.80-5.40) m/uL Hgb 13.3 (11.4-16.0) gm/dL Hct 39.6 (34.0-46.0) % MCV 90.3 (80.0-100.0) fL MCH 30.3 (25.0-35.0) pg MCHC 33.6 (31.0-37.0) g/dL RDW 13.1 (11.5-15.5) % Plt Count 266 (150-450) k/uL Neutrophils % 71 % Lymphocytes % 19 % Monocytes % 3 % Eosinophils % 5 % Basophils % 1 % Neutrophils # 5.5 (1.3-7.7) k/uL Lymphocytes # 1.5 (1.0-4.8) k/uL Monocytes # 0.2 (0-1.0) k/uL Eosinophils # 0.4 (0-0.7) k/uL Basophils # 0.0 (0-0.2) k/uL Sodium (137-145) mmol/L Potassium (3.5-5.1) mmol/L Chloride (98-107) mmol/L Carbon Dioxide (22-30) mmol/L Anion Gap mmol/L BUN (7-17) mg/dL Creatinine (0.52-1.04) mg/dL Est GFR (CKD-EPI)AfAm (>60 ml/min/1.73 sqM) Est GFR (CKD-EPI)NonAf (>60 ml/min/1.73 sqM) Glucose (74-99) mg/dL Plasma Lactic Acid Sanjay (0.7-2.0) mmol/L Calcium (8.4-10.2) mg/dL Total Bilirubin (0.2-1.3) mg/dL AST (14-36) U/L ALT (4-34) U/L Alkaline Phosphatase (38-126) U/L Total Protein (6.3-8.2) g/dL Albumin (3.5-5.0) g/dL Lipase (23-300) U/L Urine Color Dark Brown Urine Appearance Clear (Clear) Urine pH 6.0 (5.0-8.0) Ur Specific [place] 1.011 (1.001-1.035) Urine Protein Negative (Negative) Urine Glucose (UA) Negative (Negative) Urine Ketones Negative (Negative) Urine Blood Negative (Negative) Urine Nitrite Positive H (Negative) Urine Bilirubin 1+ H (Negative) Urine Urobilinogen 2.0 (<2.0) mg/dL Ur Leukocyte Esterase Negative (Negative) Urine RBC <1 (0-5) /hpf Urine WBC 1 (0-5) /hpf Ur Squamous Epith Cells 1 (0-4) /hpf Urine HCG, Qual Not Detected (Not Detectd) 11/16/19 11/16/19 Range/Units 15:21 15:21 WBC (3.8-10.6) k/uL RBC (3.80-5.40) m/uL Hgb (11.4-16.0) gm/dL Hct (34.0-46.0) % MCV (80.0-100.0) fL MCH (25.0-35.0) pg MCHC (31.0-37.0) g/dL RDW (11.5-15.5) % Plt Count (150-450) k/uL Neutrophils % % Lymphocytes % % Monocytes % % Eosinophils % % Basophils % % Neutrophils # (1.3-7.7) k/uL Lymphocytes # (1.0-4.8) k/uL Monocytes # (0-1.0) k/uL Eosinophils # (0-0.7) k/uL Basophils # (0-0.2) k/uL Sodium 135 L (137-145) mmol/L Potassium 4.1 (3.5-5.1) mmol/L Chloride 103 (98-107) mmol/L Carbon Dioxide 23 (22-30) mmol/L Anion Gap 9 mmol/L BUN 15 (7-17) mg/dL Creatinine 0.69 (0.52-1.04) mg/dL Est GFR (CKD-EPI)AfAm >90 (>60 ml/min/1.73 sqM) Est GFR (CKD-EPI)NonAf >90 (>60 ml/min/1.73 sqM) Glucose 107 H (74-99) mg/dL Plasma Lactic Acid Sanjay 0.9 (0.7-2.0) mmol/L Calcium 8.9 (8.4-10.2) mg/dL Total Bilirubin 0.3 (0.2-1.3) mg/dL AST 38 H (14-36) U/L ALT 34 (4-34) U/L Alkaline Phosphatase 91 (38-126) U/L Total Protein 6.9 (6.3-8.2) g/dL Albumin 4.2 (3.5-5.0) g/dL Lipase 70 (23-300) U/L Urine Color Urine Appearance (Clear) Urine pH (5.0-8.0) Ur Specific [place] (1.001-1.035) Urine Protein (Negative) Urine Glucose (UA) (Negative) Urine Ketones (Negative) Urine Blood (Negative) Urine Nitrite (Negative) Urine Bilirubin (Negative) Urine Urobilinogen (<2.0) mg/dL Ur Leukocyte Esterase (Negative) Urine RBC (0-5) /hpf Urine WBC (0-5) /hpf Ur Squamous Epith Cells (0-4) /hpf Urine HCG, Qual (Not Detectd) Disposition Is patient prescribed a controlled substance at d/c from ED?: No <Greg Linder - Last Filed: 11/16/19 17:02> <Yashira Castañeda A - Last Filed: 11/20/19 02:18> Clinical Impression: Flank pain, UTI (urinary tract infection) Disposition: HOME SELF-CARE Condition: Stable Instructions (If sedation given, give patient instructions): Urinary Tract Infection in Women (ED), Flank Pain (ED) Additional Instructions: Follow-up with primary care provider tomorrow. Take antibiotics as directed. Return to ER if condition worsens. Prescriptions: Cephalexin [Keflex] 500 mg PO Q6HR 10 Days #40 cap Referrals: Axel Saldivar DO [Primary Care Provider] - 1-2 days
[2019-11-16 15:50] LABS: ALT 34 U/L (4-34); AST 38 U/L (14-36); African American GFR (CKD) >90 (>60 ml/min/1.73 sqM); Albumin 4.2 g/dL (3.5-5.0); Alkaline Phosphatase 91 U/L (38-126); Anion Gap 9 mmol/L; Blood Urea Nitrogen 15 mg/dL (7-17); Calcium 8.9 mg/dL (8.4-10.2); Carbon Dioxide 23 mmol/L (22-30); Chloride 103 mmol/L (98-107); Glucose 107 mg/dL (74-99); Non-African American GFR(CKD) >90 (>60 ml/min/1.73 sqM); Potassium 4.1 mmol/L (3.5-5.1); Sodium 135 mmol/L (137-145); Total Bilirubin 0.3 mg/dL (0.2-1.3); Total Protein 6.9 g/dL (6.3-8.2)
[2019-11-16 15:56] LABS: Basophils % (A) 1 %; Eosinophils # (A) 0.4 k/uL (0-0.7); Eosinophils % (A) 5 %; HCT 39.6 % (34.0-46.0); HGB 13.3 gm/dL (11.4-16.0); Lymphocytes # (A) 1.5 k/uL (1.0-4.8); Lymphocytes % (A) 19 %; MCH 30.3 pg (25.0-35.0); MCHC 33.6 g/dL (31.0-37.0); MCV 90.3 fL (80.0-100.0); Mean Platelet Volume 7.3; Monocytes # (A) 0.2 k/uL (0-1.0); Monocytes % (A) 3 %; Neutrophils # (A) 5.5 k/uL (1.3-7.7); Neutrophils % (A) 71 %; Platelet Count 266 k/uL (150-450); RBC 4.38 m/uL (3.80-5.40); RDW 13.1 % (11.5-15.5); WBC 7.7 k/uL (3.8-10.6)
--- NOTE | 2019-11-16 16:14 | CT ---
EXAMINATION TYPE: CT abdomen pelvis w con DATE OF EXAM: 11/16/2019 COMPARISON: 08/27/2017 HISTORY: 49-year-old female with abdominal pain. UTI. TECHNIQUE: Contiguous axial scanning of the abdomen and pelvis following administration of 100 ml Iso micah 300 IV contrast. Delayed images through the kidneys and coronal/sagittal reconstructions perform ed. CT DLP: 1296.4 mGycm Automated exposure control for dose reduction was used. FINDINGS: Heart normal size without pericardial effusion. Lung bases clear without pleural effusion. Liver borderline in size at 17.6 cm with low attenuation. Some fatty sparing along the gallbladder fo ssa. Portal venous system is patent. No biliary ductal dilatation. Gallbladder, adrenal glands, right kidney, spleen, and pancreas appear within normal limits. Some prominent left mid abdominal jejunal loops with suggestion of mild wall thickening. Loops are di stended up to 2.9 cm. Stable 4.6 cm AML lateral left kidney. Symmetric uptake and excretion of contrast from the kidneys. Redemonstrated scattered prominent mesenteric lymph nodes in the left side of the abdomen measuring u p to 7 mm. Additional scattered lymph nodes right lower quadrant are unchanged as well. Normal appendix. Mild stool burden. Mild sigmoid diverticulosis. No pericolonic inflammatory change. Bladder nondistended but shows mild circumferential wall thickening. Uterus anteverted. Left-sided pe lvic fluid was. 1.4 cm cystic lesion left ovary suggesting a dominant follicle or functional cyst. No abnormal fluid collection in the pelvis or pelvic lymphadenopathy. Bones: No osseous destructive process. IMPRESSION: 1. A FEW PROMINENT JEJUNAL LOOPS IN THE LEFT MID ABDOMEN WITH MILD WALL THICKENING. CORRELATE FOR POS SIBLE NONSPECIFIC MILD ENTERITIS. 2. MILD CIRCUMFERENTIAL BLADDER WALL THICKENING CAN BE SEEN WITH CYSTITIS. 3. REDEMONSTRATED 4.6 CM BENIGN AML OF THE LEFT KIDNEY. NOTE THAT SIZE GREATER THAN 4 CM DOES CONFER AN INCREASED RISK FOR SPONTANEOUS HEMORRHAGE. 4. HEPATIC STEATOSIS.
[2019-11-16] MEDS ORDERED: ACET/COD 300 MG/30 MG STARTER PACK 6 TAB BTL PO STA (17:06)
[2019-11-16] MEDS ORDERED: CEPHALEXIN 500MG STARTER PACK 4 CAP BTL PO STA (17:06)
== END 2019-11-16 17:10 | disposition home or self-care (01) ==
LOC: EC 13:49
DX: N39.0 Urinary tract infection, site not specified (principal); N32.89 Other specified disorders of bladder; K76.0 Fatty (change of) liver, not elsewhere classified; K21.9 Gastro-esophageal reflux disease without esophagitis; F41.9 Anxiety disorder, unspecified; G40.909 Epilepsy, unspecified, not intractable, without status epilepticus; Z79.899 Other long term (current) drug therapy; Z88.0 Allergy status to penicillin; Z91.040 Latex allergy status; Z87.891 Personal history of nicotine dependence
CPT/HCPCS: 99284; 96365; 96375 ×2; 36415; 80053; 83605; 83690; 85025; 81001; 81025; 74177; J2270; J2405; J0696; Q9967

== ENCOUNTER → 2020-07-26 | Outpatient (CLI) | payer BC ==
--- NOTE | 2020-07-27 11:17 | MM ---
Reason for exam: screening (asymptomatic). Last mammogram was performed 1 year and 7 months ago. History: Patient had first child at age 37. Family history of breast cancer in maternal grandmother at age 60. Took hormonal contraceptives for 15 years beginning at age 18. Physical Findings: A clinical breast exam by your physician is recommended on an annual basis and results should be correlated with mammographic findings. MG 3D Screening Mammo W/Cad Bilateral CC and MLO view(s) were taken. Prior study comparison: December 28, 2018, bilateral MG 3d diag mammo w/cad NAVID. November 18, 2017, bilateral MG screening mammo w CAD. The breast tissue is extremely dense which could obscure a lesion on mammography. Finding: There are new, fine, grouped/clustered calcifications in the lower inner quadrant, anterior position of the left breast. New finding since December 28, 2018 and November 18, 2017. ASSESSMENT: Incomplete: need additional imaging evaluation, BI-RAD 0 RECOMMENDATION: Special view mammogram of the left breast. [facility] will attempt to contact patient to return for supplemental views.
== END ==
LOC: RADMAMWWP 15:11
PROVIDERS: ATTEND Obstetrics & Gynecology
DX: Z12.31 Encounter for screening mammogram for malignant neoplasm of breast (principal); Z80.3 Family history of malignant neoplasm of breast
CPT/HCPCS: 77063; 77067

== ENCOUNTER → 2020-08-02 | Outpatient (CLI) | payer BC ==
--- NOTE | 2020-08-02 11:19 | MM ---
Reason for exam: additional evaluation requested from abnormal screening. Last mammogram was performed less than 1 month ago. History: Patient had first child at age 37. Family history of breast cancer in maternal grandmother at age 60. Took hormonal contraceptives for 15 years beginning at age 18. Physical Findings: Nurse Summary: 0.5cm nodule in the right breast at 6 o'clock (nurse alexandre). MG 3D Work Up W/Cad LT Spot compression CC, spot compression MLO, and LM view(s) were taken of the left breast. Prior study comparison: July 26, 2020, bilateral MG 3d screening mammo w/cad. December 28, 2018, bilateral MG 3d diag mammo w/cad [facility]. The breast tissue is heterogeneously dense. This may lower the sensitivity of mammography. Finding: There are indeterminate calcifications in the lower inner quadrant of the left breast. These results were verbally communicated with the patient and result sheet given to the patient on 08/02/20. ASSESSMENT: Suspicious, BI-RAD 4 RECOMMENDATION: Ultrasound and stereotactic core biopsy of the left breast. Called Dr. Richards's office with mammographic findings and has scheduled an appointment for the patient for 08/29/20 at 9:[address] Velez. Biopsy scheduled for 08/27/20 at 10:00. PRELIMINARY REPORT CALLED AND FAXED TO DR. VELEZ ON 08/02/20.
--- NOTE | 2020-08-02 11:21 | USB ---
Reason for exam: additional evaluation requested from abnormal screening. History: Patient had first child at age 37. Family history of breast cancer in maternal grandmother at age 60. Took hormonal contraceptives for 15 years beginning at age 18. US Breast Workup Limited LT Technologist: Mariam Mantilla Left limited breast ultrasound including focal area of concern, retroareolar and axilla demonstrates a 1.7 x 1.2 x 1.1cm cystic lesion at 5 o'clock. Scanned 4-6 o'clock. These results were verbally communicated with the patient and result sheet given to the patient on 08/02/20. ASSESSMENT: Benign, BI-RAD 2 RECOMMENDATION: Stereotactic core biopsy of the left breast. Called Dr. Richards's office with mammographic findings and has scheduled an appointment for the patient for 08/29/20 at 9:[address] Velez. Biopsy scheduled for 08/27/20 at 10:00. PRELIMINARY REPORT CALLED AND FAXED TO DR. VELEZ ON 08/02/20.
== END ==
LOC: RADMAMWWP 07:41
PROVIDERS: ATTEND Obstetrics & Gynecology
DX: R92.1 Mammographic calcification found on diagnostic imaging of breast (principal); Z80.3 Family history of malignant neoplasm of breast
CPT/HCPCS: 77061; 77065

== ENCOUNTER → 2020-08-27 | Day surgery (SDC) | payer BC ==
[2020-08-27 09:54] VITALS: RESP 16
[2020-08-27 11:26] VITALS: BP 113/72; PULSE 84; TEMP 98.5
--- NOTE | 2020-08-27 12:48 | MM ---
EXAMINATION TYPE: MG stereo VAD BX LT DATE OF EXAM: 08/27/2020 COMPARISON: 08/02/2020 and 07/26/2020 CLINICAL HISTORY: 50-year-old female referred for stereotactic core needle biopsy of left breast micr ocalcifications. TECHNIQUE: Stereotactic guided core biopsy of the left breast. FINDINGS: The procedure of stereotactic guided core biopsy was explained to the patient. Benefits, a lternatives, and risks were discussed. An informed consent was then obtained. Grouped calcifications identified at the 8:00 position of the left breast anterior to middle depth. T hese are targeted for biopsy. The shortness path was a medial approach. However, the calcifications are best seen on the CC view so a CC from below approach was chosen. I perform the localization followed by the remainder of the pro cedure. A vacuum assisted biopsy gun was used to obtain 10 core samples. The patient tolerated the procedure well without any immediate complication. The patient was kept in the radiology department for short stay after the procedure and then discharged home in stable condi tion. Targeted calcifications are identified in specimen mammogram. Post biopsy mammogram shows the clip to appear in satisfactory position relative to the targeted area of concern on the preprocedure images. IMPRESSION: SUCCESSFUL, UNCOMPLICATED STEREOTACTIC GUIDED CORE BIOPSY OF 8:00 LEFT BREAST GROUPED MICROCALCIFICAT IONS; FULL PATHOLOGY RESULTS TO FOLLOW. IF BENIGN RESULTS, SIX-MONTH FOLLOW-UP POST BIOPSY LEFT BREAST MAMMOGRAM WILL BE RECOMMENDED. ADDITIO TRUDY, FURTHER CLINICAL MANAGEMENT OF ANY SUSPICIOUS PALPABLE ABNORMALITIES.
== END ==
LOC: RADMAMWWP 09:04
PROVIDERS: ATTEND Student in an Organized Health Care Education/Training Program
DX: N60.12 Diffuse cystic mastopathy of left breast (principal); R92.0 Mammographic microcalcification found on diagnostic imaging of breast; Z91.040 Latex allergy status; Z88.2 Allergy status to sulfonamides; Z80.3 Family history of malignant neoplasm of breast
CPT/HCPCS: 88305; 19081; A4648; J2001

== ENCOUNTER → 2020-09-14 | Outpatient (CLI) | payer BC ==
[2020-09-14 19:40] LABS: Basophils # (A) 0.06 X 10*3/uL (0.00-0.10); Basophils % (A) 0.9 %; Eosinophils # (A) 0.15 X 10*3/uL (0.04-0.35); Eosinophils % (A) 2.1 %; HGB 13.7 g/dL (12.0-15.0); Lymphocytes # (A) 1.76 X 10*3/uL (0.90-5.00); MCH 28.5 pg (27.0-32.0); MCHC 31.1 g/dL (32.0-37.0); MCV 91.7 fL (80.0-97.0); Mean Platelet Volume 10.3 fL (9.5-12.2); Monocytes % (A) 2.8 %; Neutrophils # (A) 4.85 X 10*3/uL (1.80-7.70); Neutrophils % (A) 69.1 %; Platelet Count 312 X 10*3/uL (140-440); RDW 12.8 % (11.5-14.5); WBC 7.03 X 10*3/uL (4.50-10.00)
[2020-09-14 20:49] LABS: Hemoglobin A1C 5.8 % (4.0-6.0)
[2020-09-15 03:57] LABS: Albumin 4.8 g/dL (3.80-4.90); Albumin/Globulin Ratio 2.29 (1.60-3.17); Anion Gap 11.6 mmol/L (4.00-12.00); BUN/Creat Ratio 23.75 Ratio (12.00-20.00); Calcium 9.9 mg/dL (8.7-10.3); Carbon Dioxide 28.4 mmol/L (21.6-31.8); Chol/HDL Ratio 5.81; Globulin 2.1 g/dL (1.6-3.3); LDL Cholesterol,Calculated 151.8 mg/dL (0.0-131.0); Non-African American GFR(CKD) 87.2 (60.0-200.0); Potassium 4.9 mmol/L (3.5-5.5); Total Bilirubin 0.4 mg/dL (0.2-1.2); Total Protein 6.9 g/dL (6.2-8.2); VLDL Calculation 21.2 mg/dL (5.00-40.00)
[2020-09-15 04:06] LABS: Follicle Stimulating Hormone 33.3 mIU/mL; Luteinizing Hormone 23.7 mIU/mL; T4, Free (Free Thyroxine) 1.2 ng/dL (0.80-1.80)
== END | disposition home or self-care (01) ==
LOC: LABWHC1 09:41
PROVIDERS: ATTEND Family Medicine
DX: E78.5 Hyperlipidemia, unspecified (principal); E55.9 Vitamin D deficiency, unspecified; N95.9 Unspecified menopausal and perimenopausal disorder; G40.909 Epilepsy, unspecified, not intractable, without status epilepticus; R53.83 Other fatigue
CPT/HCPCS: 36415; 80053; 80061; 82306; 82607; 82672; 83001; 83002; 83036; 84144; 84207; 84439; 84443; 85025

== ENCOUNTER → 2020-09-26 | Outpatient (CLI) | payer BC | END | disposition home or self-care (01) | LOC: LABWHC1 14:04 | PROVIDERS: ATTEND Family Medicine | DX: U07.1 COVID-19 (principal) | CPT/HCPCS: U0003; C9803; U0005 ==

== ENCOUNTER → 2021-07-19 | Outpatient (CLI) | payer BC ==
--- NOTE | 2021-07-22 08:27 | MM ---
Reason for exam: follow-up at short interval from prior study. Last mammogram was performed 11 months ago. History: Patient had first child at age 37. Family history of breast cancer in maternal grandmother at age 60. Benign MG stereo VAD BX LT of the left breast, August 27, 2020. Took hormonal contraceptives for 15 years beginning at age 18. Physical Findings: Nurse did not find any significant physical abnormalities on exam. MG 3D Diag Mammo W/Cad LT CC and MLO view(s) were taken of the left breast. Prior study comparison: August 02, 2020, left breast MG 3d work up w/cad LT. July 26, 2020, bilateral MG 3d screening mammo w/cad. The breast tissue is heterogeneously dense. This may lower the sensitivity of mammography. Stable benign calcifications. No significant new findings when compared with previous films. These results were verbally communicated with the patient and result sheet given to the patient on 07/19/21. ASSESSMENT: Benign, BI-RAD 2 RECOMMENDATION: Return to routine screening mammogram schedule for both breasts. Back on schedule for July 2021.
== END | disposition home or self-care (01) ==
LOC: RADMAMWWP 14:07
PROVIDERS: ATTEND Student in an Organized Health Care Education/Training Program
DX: R92.8 Other abnormal and inconclusive findings on diagnostic imaging of breast (principal)
CPT/HCPCS: 77061; 77065

== ENCOUNTER → 2021-11-04 | Outpatient (CLI) | payer BC ==
--- NOTE | 2021-11-06 13:09 | MM ---
Reason for Exam: Screening (asymptomatic). Last mammogram was performed 1 year(s) and 3 month(s) ago. Patient History: Menarche at age 14. First Full-Term at age 37. Late child-bearing (after 30). Postmenopausal. Hormonal Contraceptives, starting at age 18 for 15 years. Currently using Estrogen and Progesterone, for 1 month. 08/27/2020, Benign Core Biopsy on the left side. Maternal grandmother had breast cancer, age 77. Risk Values: Jenny 5 year model risk: 1.6%. NCI Lifetime model risk: 14.5%. Prior Study Comparison: 07/26/2020 Bilateral Screening Mammogram, [facility]. 08/02/2020 Left Diagnostic Mammogram, [facility]. 07/19/2021 Left Diagnostic Mammogram, [facility]. Tissue Density: The breast tissue is heterogeneously dense. This may lower the sensitivity of mammography. Findings: Analyzed By CAD. Benign-appearing bilateral axillary lymph nodes are redemonstrated bilaterally. Scattered and grouped benign-appearing punctate calcifications are redemonstrated throughout both breasts mammotome biopsy clip left breast is redemonstrated. There is no suspicious group of microcalcifications or new suspicious mass in either breast. Overall Assessment: Benign, BI-RAD 2 Management: Screening Mammogram of both breasts in 1 year. A clinical breast exam by your physician is recommended on an annual basis and results should be correlated with mammographic findings. Electronically signed and approved by: Arjun Segovia M.D.
== END | disposition home or self-care (01) ==
LOC: RADMAMWWP 16:29
PROVIDERS: ATTEND Obstetrics & Gynecology
DX: Z12.31 Encounter for screening mammogram for malignant neoplasm of breast (principal)
CPT/HCPCS: 77063; 77067

== ENCOUNTER → 2023-02-04 | Outpatient (CLI) | payer BC ==
--- NOTE | 2023-02-05 08:38 | MM ---
Reason for Exam: Screening (asymptomatic). Last mammogram was performed 1 year(s) and 3 month(s) ago. Patient History: Menarche at age 14. First Full-Term at age 37. Late child-bearing (after 30). Postmenopausal. Hormonal Contraceptives, starting at age 18 for 15 years. Currently using Estrogen and Progesterone, for 1 month. 08/27/2020, Benign Core Biopsy on the left side. Maternal grandmother had breast cancer, age 77. Risk Values: Jenny 5 year model risk: 1.6%. NCI Lifetime model risk: 14.2%. Prior Study Comparison: 10/15/2016 Bilateral Diagnostic Mammogram, [facility]. 11/18/2017 Bilateral Screening Mammogram, [facility]. 12/28/2018 Bilateral Diagnostic Mammogram, [facility]. 07/26/2020 Bilateral Screening Mammogram, [facility]. 08/02/2020 Left Diagnostic Mammogram, [facility]. 07/19/2021 Left Diagnostic Mammogram, [facility]. 11/04/2021 Bilateral MG 3D screening mammo w/cad, [facility]. Tissue Density: The breast tissue is heterogeneously dense. This may lower the sensitivity of mammography. Findings: Analyzed By CAD. Partially obscured nodular densities 12:00 position left breast 4 cm from the nipple. Additional views and ultrasound recommended. Stable scattered punctate calcifications seen bilaterally without suspicious cluster. Overall Assessment: Incomplete: need additional imaging evaluation, BI-RAD 0 Management: Diagnostic Mammogram of the left breast. . Patient should continue monthly self-breast exams. A clinical breast exam by your physician is recommended on an annual basis. This exam should not preclude additional follow-up of suspicious palpable abnormalities. Note on Jenny scores and lifetime risk: 1. A Jenny score greater than 3% is considered moderate risk. If this is the case, consider specialist referral to assess eligibility for a risk reducing agent. 2. If overall lifetime risk for the development of breast cancer is 20% or higher, the patient may qualify for future screening with alternating mammogram and breast MRI. Electronically signed and approved by: Ronal Sawyer M.D. Radiologis
== END | disposition home or self-care (01) ==
LOC: RADMAMWWP 08:45
PROVIDERS: ATTEND Obstetrics & Gynecology
DX: Z12.31 Encounter for screening mammogram for malignant neoplasm of breast (principal); Z78.0 Asymptomatic menopausal state; Z80.3 Family history of malignant neoplasm of breast
CPT/HCPCS: 77063; 77067

== ENCOUNTER → 2023-02-11 | Outpatient (CLI) | payer BC ==
--- NOTE | 2023-02-11 11:16 | MM ---
Reason for Exam: Clinical finding. Last screening mammogram was performed less than 1 month ago. Patient History: Menarche at age 14. First Full-Term at age 37. Late child-bearing (after 30). Postmenopausal. Hormonal Contraceptives, starting at age 18 for 15 years. Estrogen and Progesterone for 1 month starting at age 51. 08/27/2020, Benign Core Biopsy on the left side. Maternal grandmother had breast cancer, age 77. Risk Values: Jenny 5 year model risk: 1.6%. NCI Lifetime model risk: 14.2%. Prior Study Comparison: 07/19/2021 Left Diagnostic Mammogram, [facility]. 11/04/2021 Bilateral MG 3D screening mammo w/cad, [facility]. 02/04/2023 Bilateral MG 3D screening mammo w/cad, [facility]. Tissue Density: Left: The breast tissue is heterogeneously dense. This may lower the sensitivity of mammography. Findings: Analyzed By CAD. Pattern appears stable. There is a 1.1 cm oval density with circumscribed margins located 4 cm from the nipple 11-12 o'clock middle position. Additional workup with ultrasound is recommended There are scattered punctate benign-appearing calcifications within the left breast. A core marker is present within the left breast. No suspicious groups of microcalcifications, spiculated or lobular masses, architectural distortion or other secondary signs of malignancy are mammographically apparent. Overall Assessment: Incomplete: need additional imaging evaluation, BI-RAD 0 Management: Diagnostic Breast Ultrasound of the left breast. A negative mammogram report should not preclude additional follow up of suspicious palpable abnormalities. Patient should continue monthly self breast exam. A clinical breast exam by your physician is recommended on an annual basis and results should be correlated with mammographic findings. Electronically signed and approved by: Alcon Jeffrey D.O. Radiologis
--- NOTE | 2023-02-11 19:39 | USB ---
Patient History: Menarche at age 14. First Full-Term at age 37. Late child-bearing (after 30). Postmenopausal. Hormonal Contraceptives, starting at age 18 for 15 years. Estrogen and Progesterone for 1 month starting at age 51. 08/27/2020, Benign Core Biopsy on the left side. Maternal grandmother had breast cancer, age 77. Risk Values: Jenny 5 year model risk: 1.6%. NCI Lifetime model risk: 14.2%. Technique: Method: Targeted. Prior Study Comparison: 07/19/2021 Left Diagnostic Mammogram, [facility]. 11/04/2021 Bilateral MG 3D screening mammo w/cad, [facility]. 02/04/2023 Bilateral MG 3D screening mammo w/cad, [facility]. Findings: The upper section of the breast of the left breast, the axilla of the left breast and the retroareolar of the left breast were scanned. There is a 1.3 x 1.0 x 1.4 cm simple appearing cyst at the 11:00 position 4 cm from the nipple. This appears to correlate with the mammographic findings. Additional smaller cystlike areas are present.. Overall Assessment: Benign, BI-RAD 2 Management: Screening Mammogram of both breasts in 1 year. A clinical breast exam by your physician is recommended on an annual basis and results should be correlated with mammographic findings. This exam should not preclude additional follow-up of suspicious palpable abnormalities. Results were given to the patient verbally at the time of exam. Electronically signed and approved by: Alcon Jeffrey D.O. Radiologis
== END | disposition home or self-care (01) ==
LOC: RADMAMWWP 10:30
PROVIDERS: ATTEND Obstetrics & Gynecology
DX: R92.8 Other abnormal and inconclusive findings on diagnostic imaging of breast (principal); Z78.0 Asymptomatic menopausal state; Z80.3 Family history of malignant neoplasm of breast
CPT/HCPCS: 77061; 77065

== ENCOUNTER → 2024-03-16 | Outpatient (CLI) | payer BC ==
--- NOTE | 2024-03-18 08:42 | MM ---
Reason for Exam: Screening (asymptomatic). Last mammogram was performed 1 year(s) and 1 month(s) ago. Patient History: Menarche at age 14. First Full-Term at age 37. Late child-bearing (after 30). Postmenopausal. Hormonal Contraceptives, starting at age 18 for 15 years. Estrogen and Progesterone for 1 month starting at age 51. 08/27/2020, Benign Core Biopsy on the left side. Maternal grandmother had breast cancer, age 77. Risk Values: Jenny 5 year model risk: 1.6%. NCI Lifetime model risk: 14.0%. Prior Study Comparison: 11/04/2021 Bilateral MG 3D screening mammo w/cad, [facility]. 02/04/2023 Bilateral MG 3D screening mammo w/cad, [facility]. 02/11/2023 Left MG 3D work up w/cad , [facility]. Tissue Density: The breasts are heterogeneously dense, which may obscure small masses. Findings: Analyzed By CAD. Partially obscured nodular density upper outer left breast 8 cm from the nipple. Additional views are recommended. Stable benign calcifications seen bilaterally. No right breast mass is appreciated. Overall Assessment: Incomplete: need additional imaging evaluation, BI-RAD 0 Management: Diagnostic Mammogram of the left breast. . Patient should continue monthly self-breast exams. A clinical breast exam by your physician is recommended on an annual basis. This exam should not preclude additional follow-up of suspicious palpable abnormalities. Note on Jenny scores and lifetime risk: 1. A Jenny score greater than 3% is considered moderate risk. If this is the case, consider specialist referral to assess eligibility for a risk reducing agent. 2. If overall lifetime risk for the development of breast cancer is 20% or higher, the patient may qualify for future screening with alternating mammogram and breast MRI. [facility], , 03/18/2024 8:39 AM. Electronically signed and approved by: Ronal Sawyer M.D. Radiologis
== END | disposition home or self-care (01) ==
LOC: RADMAMWWP 11:29
PROVIDERS: ATTEND Family Medicine
CPT/HCPCS: 77063; 77067

== ENCOUNTER → 2024-04-11 | Outpatient (CLI) | payer BC ==
--- NOTE | 2024-04-11 09:29 | USB ---
Reason for Exam: Additional evaluation requested from abnormal screening. Patient History: Menarche at age 14. First Full-Term at age 37. Late child-bearing (after 30). Postmenopausal. Hormonal Contraceptives, starting at age 18 for 15 years. Estrogen and Progesterone for 1 month starting at age 51. 08/27/2020, Benign Core Biopsy on the left side. Maternal grandmother had breast cancer, age 77. Risk Values: Jenny 5 year model risk: 1.6%. NCI Lifetime model risk: 14.0%. Technique: Method: Targeted. Prior Study Comparison: 02/04/2023 Bilateral MG 3D screening mammo w/cad, [facility]. 02/11/2023 Left MG 3D work up w/cad , [facility]. 03/16/2024 Bilateral MG 3D screening mammo w/cad, [facility]. Findings: The upper outer quadrant of the left breast, the axilla of the left breast and the retroareolar of the left breast were scanned. Several simple cysts are noted the largest of which is noted at the left 2:00 position measuring 7 mm. There is an adjacent island of fibroglandular tissue. No suspicious masses are seen. Overall Assessment: Benign, BI-RAD 2 Management: Screening Mammogram of both breasts in 1 year. A clinical breast exam by your physician is recommended on an annual basis and results should be correlated with mammographic findings. This exam should not preclude additional follow-up of suspicious palpable abnormalities. Results were given to the patient verbally at the time of exam. [facility], , 04/11/2024 9:18 AM. Electronically signed and approved by: Ronal Sawyer M.D. Radiologis
--- NOTE | 2024-04-11 13:48 | MM ---
Reason for Exam: Additional evaluation requested from abnormal screening. Last screening mammogram was performed less than 1 month ago. Patient History: Menarche at age 14. First Full-Term at age 37. Late child-bearing (after 30). Postmenopausal. Hormonal Contraceptives, starting at age 18 for 15 years. Estrogen and Progesterone for 1 month starting at age 51. 08/27/2020, Benign Core Biopsy on the left side. Maternal grandmother had breast cancer, age 77. Risk Values: Jenny 5 year model risk: 1.6%. NCI Lifetime model risk: 14.0%. Prior Study Comparison: 02/04/2023 Bilateral MG 3D screening mammo w/cad, [facility]. 02/11/2023 Left MG 3D work up w/cad , [facility]. 03/16/2024 Bilateral MG 3D screening mammo w/cad, [facility]. Tissue Density: Left: The breasts are heterogeneously dense, which may obscure small masses. Findings: Analyzed By CAD. Nodular density upper outer left breast persists. Ultrasound is recommended. Overall Assessment: Incomplete: need additional imaging evaluation, BI-RAD 0 Management: Diagnostic Breast Ultrasound of the left breast. . Results were given to the patient verbally at the time of exam. Patient should continue monthly self-breast exams. A clinical breast exam by your physician is recommended on an annual basis. This exam should not preclude additional follow-up of suspicious palpable abnormalities. Note on Jenny scores and lifetime risk: 1. A Jenny score greater than 3% is considered moderate risk. If this is the case, consider specialist referral to assess eligibility for a risk reducing agent. 2. If overall lifetime risk for the development of breast cancer is 20% or higher, the patient may qualify for future screening with alternating mammogram and breast MRI. [facility], , 04/11/2024 1:45 PM. Electronically signed and approved by: Ronal Sawyer M.D. Radiologis
== END | disposition home or self-care (01) ==
LOC: RADMAMWWP 08:29
PROVIDERS: ATTEND Family Medicine
DX: R92.332 Mammographic heterogeneous density, left breast (principal); R92.8 Other abnormal and inconclusive findings on diagnostic imaging of breast; Z78.0 Asymptomatic menopausal state; Z80.3 Family history of malignant neoplasm of breast
CPT/HCPCS: 77061; 77065